=== PATIENT | female | born 2000 | race Caucasian/White ===

== ENCOUNTER 2021-11-24 20:44 | Inpatient (IN) ==
[2021-11-24] MEDS ORDERED: IOPAMIDOL 100 ML BOTTLE IV ONE (20:45)
[2021-11-24] MEDS ORDERED: 0.9 % SODIUM CHLORIDE 1,000 ML IV ONE (20:46)
[2021-11-24] MEDS ORDERED: SODIUM CHLORIDE IV ONE (20:57)
[2021-11-24] MEDS ORDERED: fentaNYL 100 MCG/2 ML VIAL IV ONE (21:02)
[2021-11-24] MEDS ORDERED: KETOROLAC 30 MG/ML VIAL IV ONE (21:02)
[2021-11-24] MEDS ORDERED: cefTRIAXone 2 GM in DEXTROSE 5% IN WATER 50 ML IV ONE (21:02)
[2021-11-24] MEDS ORDERED: AZITHROMYCIN 250 MG TABLET PO ONE (21:02)
[2021-11-24] MEDS ORDERED: ACETAMINOPHEN 325 MG TABLET PO ONE (21:02)
[2021-11-24] MEDS ORDERED: ONDANSETRON 4 MG/2 ML VIAL IV ONE (21:19)
--- NOTE | 2021-11-24 21:47 | Emergency Department Note ---
Female Urogenital HPI General Chief complaint: Flank Pain Stated complaint: flank pain Time Seen by Provider: 11/24/21 20:46 Source: patient Mode of arrival: ambulatory Limitations: no limitations History of Present Illness HPI Narrative: Narrative: Patient presents ED with complaints of bilateral flank pain left greater than right x2 days. Pain is rated 10/10. She reports that she had dysuria but that subsided yesterday. She also states that she had vaginal discharge which also subsided yesterday. She has had associated fever and nausea. She states that she did have a new sexual partner that is kind of sketchy. She reports that she does have IUD in. She denies vomiting, shortness of breath, hematuria, urinary frequency. Patient denies being . She denies any other alleviating or aggravating factors. Related Data Allergies Allergy/AdvReac Type Severity Reaction Status Date / Time No Known Drug Allergies Allergy Unverified 11/24/21 20:46 Review of Systems ROS ROS Narrative: Narrative: All systems ED: reviewed and negative except as stated. [facility] Narrative Patient History Narrative: Narrative: Medical/Surgical/Family History All Active Problems (Updated 11/25/21 @ 00:53 by Oliver Bueno DO) Alcoholic intoxication (Acute) Hypokalemia (Acute) Sepsis (Acute) UTI (urinary tract infection) (Acute) Pyelonephritis (Acute) Medical History Alcoholic intoxication Hypokalemia Social History Smoking Status: Never smoker Exam Narrative Narrative: Narrative: General Limitations: no limitations General appearance: Present alert Respiratory Respiratory: Present normal lung sounds bilaterally; Absent respiratory distress Cardiovascular Cardiovascular: Present regular rate and normal rhythm Adbominal Abdominal: Present soft, tenderness (Generalized), guarding and normal bowel sounds External: Present other (Nurse Juan was standby) Speculum: Present vaginal discharge and cervical discharge Bimanual: Present cervical motion tenderness Extremities Extremities: Present normal capillary refill Back Back: Present CVA tenderness (R) and CVA tenderness (L) Neurological Neurological: Present oriented X3 and normal gait Psychiatric Psychiatric: Present normal affect and normal mood Skin Skin: Present warm (WNL) and intact Course Course Course Narrative: Patient was evaluated for bilateral flank pain. Patient was tachycardic with tachypnea. Patient also had a fever. Labs were obtained show that patient had a elevated white cell count. UA was consistent with UTI. Patient deemed septic right ear with the aforementioned symptoms. She was given some IV fluids. Blood cultures were obtained and then patient was given IV antibiotics. Patient reports vaginal discharge so pelvic exam was performed showed copious amounts of discharge. GC and chlamydia sent off. Patient was given IV Rocephin and oral azithromycin to cover for gonorrhea and chlamydia. CT abdomen pelvis obtained with image reviewed myself consistent with left-sided pyelonephritis. Recommend the patient be admitted to hospitalist. Case was discussed hospitalist who has agreed to admit the patient. Plan was discussed with patient and she expressed verbal understanding and agreement. Reevaluation(s) Reevaluation #1: Patient remains hemodynamically stable. No new complaints at this time Time: 21:48 Consultations Consultation #1: Case discussed with hospitalist who has agreed to admit the patient. Time: 00:50 Vital Signs Vital signs: Vital Signs Temperature 100.6 F H 11/24/21 20:44 Pulse Rate 150 H 11/24/21 20:44 Respiratory Rate 16 11/24/21 20:44 Blood Pressure 106/65 11/24/21 20:44 Pulse Oximetry (%) 96 11/24/21 20:44 Temperature 100 F H 11/24/21 21:25 Pulse Rate 102 H 11/24/21 23:18 Respiratory Rate 26 H 11/24/21 23:18 Blood Pressure 104/64 11/24/21 23:01 Pulse Oximetry (%) 96 11/24/21 23:18 MDM MDM Narrative Medical decision making narrative: Narrative: Differential Diagnosis Differential Diagnosis: Pyelonephritis, UTI, GC Medical Records Medical records reviewed: Yes I reviewed the patient's medical records. Lab Data Lab results reviewed: Yes I reviewed the patient's lab results. Result diagrams: 11/24/21 20:55 Labs: Lab Results 11/24/21 11/24/21 11/24/21 Range/Units 20:55 20:59 21:05 WBC 22.4 H (4.5-11.0) K/mcL RBC 4.93 (3.59-5.38) M/mcL Hgb 14.5 (11.2-15.7) g/dL Hct 41.8 (34.1-44.9) % MCV 84.8 (80.0-100.0) fL MCH 29.4 (26.0-34.0) pg MCHC 34.7 (31.0-36.0) g/dL RDW 12.3 (11.5-14.5) % Plt Count 292 (140-440) K/mcL MPV 9.9 (7.4-10.4) fL Immature Gran % (Auto) 0.8 H (0.0-0.5) % Neut % (Auto) 83.2 H (38.0-78.0) % Lymph % (Auto) 5.3 L (15.5-49.0) % [place] % (Auto) 10.1 (1.0-12.0) % Eos % (Auto) 0.3 (0.0-7.0) % Baso % (Auto) 0.3 (0.0-2.0) % Lymph # (Auto) 1.19 L (1.50-4.80) K/mcL [place] # (Auto) 2.27 H (0.10-0.90) K/mcL Eos # (Auto) 0.07 (0.00-0.70) K/mcL Baso # (Auto) 0.06 (0.00-0.30) K/mcL Immature Gran # 0.18 H (0.00-0.05) K/mcl Absolute Neutrophils 18.85 H (1.80-8.00) K/mcL POC VBG pH 7.44 H 7.45 H (7.32-7.42) POC VBG pCO2 at Temp 29.8 L 28.8 L (41-51) POC VBG pO2 40 46 H (25-40) POC VBG HCO3 20.3 L 20.0 L (24-28) POC VBG Total CO2 21.0 L 21.0 L (25-29) POC Venous O2 Sat 78.0 H 85.0 H (40-70) POC VBG Base Excess -4.0 L -4.0 L (-2-2) VBG Lactic Acid 0.5 0.7 (0.5-2) Urine Color Urine Appearance (Clear) Urine pH (5.0-9.0) Ur Specific [place] (1.000-1.035) Urine Protein (Negative) mg/dL Urine Glucose (UA) (Negative) mg/dL Urine Ketones (Negative) mg/dL Urine Occult Blood (Negative) miriam/mcL Urine Nitrate (Negative) Urine Bilirubin (Negative) mg/dL Urine Urobilinogen mg/dL Ur Leukocyte Esterase (Negative) /uL Urine RBC (0-3) /hpf Urine WBC (0-4) /hpf Ur Squamous Epith Cells (0-4) /hpf Urine Bacteria (0) /hpf Urine Mucus (None) /hpf Ur Culture Indicated? 11/24/21 11/24/21 Range/Units 23:16 23:22 WBC (4.5-11.0) K/mcL RBC (3.59-5.38) M/mcL Hgb (11.2-15.7) g/dL Hct (34.1-44.9) % MCV (80.0-100.0) fL MCH (26.0-34.0) pg MCHC (31.0-36.0) g/dL RDW (11.5-14.5) % Plt Count (140-440) K/mcL MPV (7.4-10.4) fL Immature Gran % (Auto) (0.0-0.5) % Neut % (Auto) (38.0-78.0) % Lymph % (Auto) (15.5-49.0) % [place] % (Auto) (1.0-12.0) % Eos % (Auto) (0.0-7.0) % Baso % (Auto) (0.0-2.0) % Lymph # (Auto) (1.50-4.80) K/mcL [place] # (Auto) (0.10-0.90) K/mcL Eos # (Auto) (0.00-0.70) K/mcL Baso # (Auto) (0.00-0.30) K/mcL Immature Gran # (0.00-0.05) K/mcl Absolute Neutrophils (1.80-8.00) K/mcL POC VBG pH 7.40 (7.32-7.42) POC VBG pCO2 at Temp 31.6 L (41-51) POC VBG pO2 50 H (25-40) POC VBG HCO3 19.6 L (24-28) POC VBG Total CO2 21.0 L (25-29) POC Venous O2 Sat 86.0 H (40-70) POC VBG Base Excess -5.0 L (-2-2) VBG Lactic Acid 0.4 L (0.5-2) Urine Color Yellow Urine Appearance Cloudy A (Clear) Urine pH 6.0 (5.0-9.0) Ur Specific [place] 1.015 (1.000-1.035) Urine Protein 30 mg/dl A (Negative) mg/dL Urine Glucose (UA) Negative (Negative) mg/dL Urine Ketones 40 mg/dl A (Negative) mg/dL Urine Occult Blood Moderate A (Negative) miriam/mcL Urine Nitrate Positive A (Negative) Urine Bilirubin Negative (Negative) mg/dL Urine Urobilinogen Normal mg/dL Ur Leukocyte Esterase Large A (Negative) /uL Urine RBC 4 H (0-3) /hpf Urine WBC > 182 H (0-4) /hpf Ur Squamous Epith Cells 1 (0-4) /hpf Urine Bacteria None (0) /hpf Urine Mucus Few A (None) /hpf Ur Culture Indicated? yes ED POC Tests ED POC Tests: HCG POC Results Negative Radiology Data Radiology results reviewed: Yes I reviewed the patient's radiology results. Radiology results narrative: CT abdomen pelvis obtained with image reviewed myself consistent with left-sided pyelonephritis. EKG Data EKG #1: EKG attestation: Yes I reviewed and interpreted this EKG. EKG shows normal: sinus rhythm Rate: tachycardia (119) Rhythm: NSR [place]/QRS: normal Heart block present: None ST segment elevation in: None ST segment depression in: None QTc: normal QRS morphology: Present normal Interpretation: no acute changes Core Measures AMI Core Measures Followed: Yes Discharge Plan Patient/Caregiver Discharge Instructions Pt seen by HELP DESK SUPPORT/PA only: No Clinical Impression: Sepsis, UTI (urinary tract infection), Pyelonephritis Patient Disposition: Xfer As Inpt ([facility]) Condition: Good
[2021-11-24 22:08] LABS: Basophils # (Auto) 0.06 K/mcL (0.00-0.30); Basophils % (Auto) 0.3 % (0.0-2.0); Eosinophils # (Auto) 0.07 K/mcL (0.00-0.70); Eosinophils % (Auto) 0.3 % (0.0-7.0); Hematocrit 41.8 % (34.1-44.9); Hemoglobin 14.5 g/dL (11.2-15.7); Lymphocytes # (Auto) 1.19 K/mcL (1.50-4.80); Lymphocytes % (Auto) 5.3 % (15.5-49.0); Mean Cell Volume 84.8 fL (80.0-100.0); Mean Corpuscular HGB Conc 34.7 g/dL (31.0-36.0); Mean Platelet Volume 9.9 fL (7.4-10.4); Monocytes # (Auto) 2.27 K/mcL (0.10-0.90); Monocytes % (Auto) 10.1 % (1.0-12.0); Neutrophils % (Auto) 83.2 % (38.0-78.0); Platelet Count 292 K/mcL (140-440); RBC 4.93 M/mcL (3.59-5.38); Red Cell Distribution Width 12.3 % (11.5-14.5); WBC 22.4 K/mcL (4.5-11.0)
[2021-11-24 23:40] LABS: Appearance,Urine Cloudy (Clear); Bilirubin,Urine Negative (Negative); Color,Urine Yellow; Culture Indicated,Urine yes; Glucose,Urine (UA) Negative (Negative); Ketones,Urine 40 mg/dL mg/dL (Negative); Leukocyte Esterase,Urine Large /uL (Negative); Mucus,Urine FEW /hpf; Nitrate,Urine Positive (Negative); Specific Gravity,Urine 1.015 (1.000-1.035); Urine Blood Moderate ery/mcL (Negative); Urine RBC 4 /hpf (0-3); Urine Squamous Epithelial Cell 1 /hpf (0-4); Urine WBC > 182 /hpf (0-4); Urobilinogen,Urine Normal
[2021-11-25] MEDS ORDERED: NALOXONE HCL 0.4 MG/ML VIAL IV PRN (00:53)
[2021-11-25] MEDS ORDERED: ONDANSETRON 4 MG/2 ML VIAL IV PRN ×2 (00:53→07:44)
[2021-11-25] MEDS ORDERED: HYDROcodone/APAP 5/325MG TABLET PO PRN (00:53)
[2021-11-25] MEDS ORDERED: 0.9 % SODIUM CHLORIDE 1,000 ML IV SCH (01:00)
[2021-11-25] MEDS: ACETAMINOPHEN 325 MG TABLET PO PRN ×3 (05:31→19:16)
[2021-11-25 05:53] LABS: Basophils # (Auto) 0.05 K/mcL (0.00-0.30); Basophils % (Auto) 0.2 % (0.0-2.0); Eosinophils # (Auto) 0.05 K/mcL (0.00-0.70); Eosinophils % (Auto) 0.2 % (0.0-7.0); Hematocrit 43.7 % (34.1-44.9); Hemoglobin 14.6 g/dL (11.2-15.7); Lymphocytes # (Auto) 1.16 K/mcL (1.50-4.80); Lymphocytes % (Auto) 5.7 % (15.5-49.0); Mean Cell Volume 85.9 fL (80.0-100.0); Mean Corpuscular HGB Conc 33.4 g/dL (31.0-36.0); Mean Platelet Volume 9.8 fL (7.4-10.4); Monocytes # (Auto) 1.48 K/mcL (0.10-0.90); Monocytes % (Auto) 7.3 % (1.0-12.0); Neutrophils % (Auto) 85.6 % (38.0-78.0); Platelet Count 275 K/mcL (140-440); RBC 5.09 M/mcL (3.59-5.38); Red Cell Distribution Width 12.4 % (11.5-14.5); WBC 20.2 K/mcL (4.5-11.0)
[2021-11-25 06:23] LABS: ALT/SGPT 11 U/L (<40); AST/SGOT 14 U/L (<32); Albumin 3.5 gm/dL (3.2-5.2); Alkaline Phosphatase 73 U/L (39-117); Bilirubin,Direct 0.3 mg/dL (<0.3); Blood Urea Nitrogen 7 mg/dL (6-20); Calcium 8.7 mg/dL (8.6-10.4); Carbon Dioxide 19 mmol/L (22-30); Chloride 102 mmol/L (96-108); Globulin 3.5 gm/dL (2.2-3.7); Glomerular Filtration Rate 106; Glucose 105 mg/dL (70-105); Lactate Dehydrogenase 144 U/L (135-225); Phosphorous 1.8 mg/dL (2.5-4.5); Triglycerides 94 mg/dL (<125); Uric Acid 3.3 mg/dL (2.5-8.0)
[2021-11-25] MEDS ORDERED: morphine 4 MG/ML VIAL IV PRN (07:44)
--- NOTE | 2021-11-25 07:47 | Internal Med History&Physical ---
HPI History of Present Illness Patient information: Note initiated : 11/25/21 at 7:40 am Service Date, if different from initiated Date: [] Patient: Love Sage 21 y/o F admitted on 11/25/21 for flank pain. Chief Complaint: [dysuria, suprapubic pain, fever, chills] Chief complaint: dysuria, suprapubic pain, fever, chills History of present illness: Ms. Sage is a 21 year old F past medical history of urinary tract infection 2 years ago, presenting with 3-day history of dysuria, suprapubic pain, fever, chills. Patient is committing of 3-day history of dysuria, suprapubic pain, fever, and chills. She is also complained of nausea. She denies any chest pain shortness of breath or palpitations. She denies any back pain. When she presented to the ER last night, vital signs significant for fever, tachycardia, and tachypnea. Labs significant for leukocytosis with WBC 22.4, with left shift. Potassium 3.2. Lactic acid 0.4. Alcohol level 0.183. Patient stated that she only drink a beer last night. UA suggestive the presence of urinary tract infections. CT of the abdomen pelvis suggesting evidence of pyelonephritis without any kidney stones or obstructions. Patient was started with IV fluid boluses and Rocephin in the ER and admission request was called for sepsis with pyelonephritis. Constitutional Constitutional: Present chills and fever(s); Absent excessive sweating, fatigue or weakness EENT Eyes: Absent blurry vision, change in vision, loss of vision or other visual disturbances Ears: Absent decreased hearing or tinnitus Nose, mouth and throat: Absent abnormal hearing, dry mouth, headache(s), nasal congestion or sore throat Cardiovascular Cardiovascular: Absent chest pain, chest pain at rest, edema, irregular heart rhythm or palpatations Respiratory Respiratory: Absent cough, dyspnea or wheezing Gastrointestinal Gastrointestinal: Absent abdominal pain, constipation, diarrhea, nausea or vomiting Genitourinary Genitourinary: Present as per HPI and dysuria Musculoskeletal Musculoskeletal: Absent back pain, deformity, limited range of motion, muscle cramps, muscle weakness or numbness Integumentary Integumentary: Absent lesions, rash or wounds Neurological Neurological: Absent focal weakness, headache(s) or numbness Psychiatric Psychiatric: Absent anxiety, depression or hallucinations PFSH PFSH All Active Problems (Updated 11/25/21 @ 07:45 by Barber Mark MD) STD (female) (Acute) Alcoholic intoxication (Acute) Hypokalemia (Acute) Sepsis (Acute) UTI (urinary tract infection) (Acute) Pyelonephritis (Acute) Medical History Alcoholic intoxication Hypokalemia MEDS/ALLERGIES Home Medications and Allergies Allergies Allergy/AdvReac Type Severity Reaction Status Date / Time No Known Drug Allergies Allergy Unverified 11/24/21 20:46 EXAM Constitutional Vitals: Temp Pulse Resp BP Pulse Ox O2 Del Method 37.8 C H 111 H 22 105/58 98 11/25/21 05:31 11/25/21 04:00 11/25/21 04:00 11/25/21 04:00 11/25/21 04:00 11/25/21 01:23 General appearance: cooperative and no acute distress Head Head exam: Present atraumatic and normocephalic Eye Eye exam: Present EOMI and PERRL ENT ENT exam: Present mucous membranes moist, normal exam and normal external ear exam Neck Neck exam: Present normal inspection; Absent lymphadenopathy, tenderness or thyromegaly Respiratory Respiratory exam: Absent accessory muscle use, respiratory distress or wheezes Cardiovascular Cardiovascular exam: Present normal rate and rhythm; Absent JVD GI/Abdominal GI/Abdominal exam: Present normal bowel sounds and soft; Absent organomegaly or tenderness Extremities Exam Extremities exam: Present full ROM, normal capillary refill and normal inspection; Absent tenderness Back Exam Back exam: Present CVA tenderness (L) Neurological Exam Neurological exam: Present alert, CN II-XII intact and oriented X3; Absent motor sensory deficit Psychiatric Psychiatric exam: Present normal affect and normal mood; Absent anxious or depressed Skin Skin exam: Present dry and intact DATA Data Completed and Pending Labs: Labs from last 24 hours 11/25/21 11/25/21 11/24/21 05:24 05:24 23:22 WBC 20.2 H RBC 5.09 Hgb 14.6 Hct 43.7 MCV 85.9 MCH 28.7 MCHC 33.4 RDW 12.4 Plt Count 275 MPV 9.8 Immature Gran % (Auto) 1.0 H Neut % (Auto) 85.6 H Lymph % (Auto) 5.7 L [place] % (Auto) 7.3 Eos % (Auto) 0.2 Baso % (Auto) 0.2 Lymph # (Auto) 1.16 L [place] # (Auto) 1.48 H Eos # (Auto) 0.05 Baso # (Auto) 0.05 Immature Gran # 0.21 H Absolute Neutrophils 17.44 H POC VBG pH POC VBG pCO2 at Temp POC VBG pO2 POC VBG HCO3 POC VBG Total CO2 POC Venous O2 Sat POC VBG Base Excess VBG Lactic Acid Sodium 132 L Potassium 3.6 Chloride 102 Carbon Dioxide 19 L Anion Gap 11.0 BUN 7 Creatinine 0.8 GFR Calculation 106 Glucose 105 Uric Acid 3.3 Calcium 8.7 Phosphorus 1.8 L Magnesium 2.0 Total Bilirubin 1.0 Direct Bilirubin 0.3 H GGT 22 AST 14 ALT 11 Alkaline Phosphatase 73 Lactate Dehydrogenase 144 Total Protein 7.0 Albumin 3.5 Globulin 3.5 Albumin/Globulin Ratio 1.0 Triglycerides 94 Urine Color Yellow Urine Appearance Cloudy A Urine pH 6.0 Ur Specific [place] 1.015 Urine Protein 30 mg/dl A Urine Glucose (UA) Negative Urine Ketones 40 mg/dl A Urine Occult Blood Moderate A Urine Nitrate Positive A Urine Bilirubin Negative Urine Urobilinogen Normal Ur Leukocyte Esterase Large A Urine RBC 4 H Urine WBC > 182 H Ur Squamous Epith Cells 1 Urine Bacteria None Urine Mucus Few A Ur Culture Indicated? yes 11/24/21 11/24/21 11/24/21 23:16 21:05 20:59 WBC RBC Hgb Hct MCV MCH MCHC RDW Plt Count MPV Immature Gran % (Auto) Neut % (Auto) Lymph % (Auto) [place] % (Auto) Eos % (Auto) Baso % (Auto) Lymph # (Auto) [place] # (Auto) Eos # (Auto) Baso # (Auto) Immature Gran # Absolute Neutrophils POC VBG pH 7.40 7.45 H 7.44 H POC VBG pCO2 at Temp 31.6 L 28.8 L 29.8 L POC VBG pO2 50 H 46 H 40 POC VBG HCO3 19.6 L 20.0 L 20.3 L POC VBG Total CO2 21.0 L 21.0 L 21.0 L POC Venous O2 Sat 86.0 H 85.0 H 78.0 H POC VBG Base Excess -5.0 L -4.0 L -4.0 L VBG Lactic Acid 0.4 L 0.7 0.5 Sodium Potassium Chloride Carbon Dioxide Anion Gap BUN Creatinine GFR Calculation Glucose Uric Acid Calcium Phosphorus Magnesium Total Bilirubin Direct Bilirubin GGT AST ALT Alkaline Phosphatase Lactate Dehydrogenase Total Protein Albumin Globulin Albumin/Globulin Ratio Triglycerides Urine Color Urine Appearance Urine pH Ur Specific [place] Urine Protein Urine Glucose (UA) Urine Ketones Urine Occult Blood Urine Nitrate Urine Bilirubin Urine Urobilinogen Ur Leukocyte Esterase Urine RBC Urine WBC Ur Squamous Epith Cells Urine Bacteria Urine Mucus Ur Culture Indicated? 11/24/21 20:55 WBC 22.4 H RBC 4.93 Hgb 14.5 Hct 41.8 MCV 84.8 MCH 29.4 MCHC 34.7 RDW 12.3 Plt Count 292 MPV 9.9 Immature Gran % (Auto) 0.8 H Neut % (Auto) 83.2 H Lymph % (Auto) 5.3 L [place] % (Auto) 10.1 Eos % (Auto) 0.3 Baso % (Auto) 0.3 Lymph # (Auto) 1.19 L [place] # (Auto) 2.27 H Eos # (Auto) 0.07 Baso # (Auto) 0.06 Immature Gran # 0.18 H Absolute Neutrophils 18.85 H POC VBG pH POC VBG pCO2 at Temp POC VBG pO2 POC VBG HCO3 POC VBG Total CO2 POC Venous O2 Sat POC VBG Base Excess VBG Lactic Acid Sodium Potassium Chloride Carbon Dioxide Anion Gap BUN Creatinine GFR Calculation Glucose Uric Acid Calcium Phosphorus Magnesium Total Bilirubin Direct Bilirubin GGT AST ALT Alkaline Phosphatase Lactate Dehydrogenase Total Protein Albumin Globulin Albumin/Globulin Ratio Triglycerides Urine Color Urine Appearance Urine pH Ur Specific [place] Urine Protein Urine Glucose (UA) Urine Ketones Urine Occult Blood Urine Nitrate Urine Bilirubin Urine Urobilinogen Ur Leukocyte Esterase Urine RBC Urine WBC Ur Squamous Epith Cells Urine Bacteria Urine Mucus Ur Culture Indicated? A/P Assessment and plan (1) Sepsis: Status: Acute Qualifiers: Sepsis acute organ dysfunction status: without acute organ dysfunction Sepsis type: sepsis due to unspecified organism Qualified Code(s): A41.9 - Sepsis, unspecified organism (2) Pyelonephritis: Status: Acute (3) Alcoholic intoxication: Status: Acute Qualifiers: Complication of substance-induced condition: uncomplicated Qualified Code(s): F10.120 - Alcohol abuse with intoxication, uncomplicated (4) STD (female): Status: Acute Narrative A/P Narrative: Assessment and Plans: 1. Sepsis with pyelonephritis: DDx: STD Inpatient med surg s/p IV fluid bolus given in the ED, to be followed by NS@100cc/hr Serial lactic acid Procalcitonin cbc w/ auto diff in the morning Blood culture Urine culture Genital culture Rocephin Zithromax Tylenol Reading Morphine IV 2. Alcohol intoxication: No signs of active alcohol withdrawal, continue to watch for symptoms of withdrawal GI ppx: not currently indicated DVT ppx: Lovenox Code status: Full Prognosis: guarded Disposition: inpatient med surg Time Spent With Patient Time: Total time spent is greater than 50% in coordination of care (as documented) at patient's floor/unit and/or counseling patient: Total time spent with greater than 50% in coordination of care (as documented) at patient's floor/unit and/or counseling patient:: 50 - 70 minutes QUALITY VTE Deep Vein Thrombosis/Pulmonary Embolism Present on Admission: No
--- NOTE | 2021-11-25 08:49 | Cat Scan Report ---
CLINICAL INFORMATION: Bilateral flank pain COMPARISON: None. TECHNIQUE: Following enteric contrast, 80 cc of Isovue-370 were injected intravenously, and 60 seconds later, 0.625 mm helical slices were obtained from the mid heart through the subtrochanteric regions. Following reconstruction, 2.5 mm sagittal, coronal and axial reformatted images were processed and reviewed at bone, lung and soft tissue windows. Five minutes later, 0.625 mm helical slices were obtained from the mid heart through the kidneys and viewed at soft tissue windows.The exam was performed using radiation dose optimization techniques including, but not limited to, automated exposure control, adjustment of the mA and/or kV according to patient size and use of iterative reconstruction technique. FINDINGS: The lung bases are clear. No effusions. The visualized heart is grossly normal. Abdominal images show the gallbladder and bile ducts are unremarkable. The liver is diffusely inhomogeneous and mildly enlarged with a vertical dimension of 17 cm in midclavicular line. Associated periportal edema suggests inflammation or other hepatopathy. No focal hepatic lesions. The gallbladder and bile ducts are normal colon CBD is 5 mm. Both adrenal glands, spleen, pancreas and aorta, including aortic branches, are normal in size, configuration and attenuation without focal lesion. There is no free air. Modest simple free fluid noted in the deep true pelvis. Few mildly enlarged left retroperitoneal lymph nodes in the perinephric area compatible benign reactive adenopathy. The left kidney is inhomogeneous attenuation and minimally enlarged with a length of 11 cm. It demonstrates inhomogeneous attenuation with scattered vague wedge-shaped areas of lower attenuation in the renal cortex and medulla suggesting lobar nephronia. A 3 cm low-attenuation focus in the superior pole the left kidney likely represents developing abscess. Mild perinephric stranding noted. There is also mild thickening of the transitional epithelium in the left upper collecting system and ureter. The right kidney is normal size configuration and attenuation. Pelvic images show mild diffuse wall thickening of urinary bladder suggesting associated cystitis.. Uterus and both ovaries are normal in size, configuration and attenuation. The stomach, small bowel, inferior pericecal appendix and large bowel are grossly normal. Bone windows show no osseous abnormality IMPRESSION: 1. Left pyelonephritis with probable 3 cm developing abscess in the superior pole. 2. Diffuse wall thickening urinary bladder suggesting associated cystitis 3. Mild hepatomegaly with periportal edema suggesting inflammation or other primary hepatopathy. Please correlate with LFTs Interpreted and Authenticated by: Sid Vital 11/25/21
[2021-11-25] MEDS ORDERED: AZITHROMYCIN 500 MG in DEXTROSE 5% IN WATER 250 ML IV SCH (09:00)
[2021-11-25] MEDS: DOCUSATE SODIUM 100 MG CAPSULE PO SCH ×2 (09:02→20:49)
[2021-11-25] MEDS: 0.9 % SODIUM CHLORIDE 1,000 ML IV SCH ×3 (09:07→16:46)
[2021-11-25] MEDS: cefTRIAXone 2 GM in DEXTROSE 5% IN WATER 50 ML IV SCH (09:08)
[2021-11-25] MEDS: ENOXAPARIN 40 MG/0.4 ML SYRINGE SQ SCH (09:12)
[2021-11-25] MEDS: DOXYCYCLINE HYCLATE 100 MG TABLET.ORL PO SCH ×2 (11:23→20:46)
[2021-11-25] MEDS: 0.9 % SODIUM CHLORIDE 10 ML SYRINGE IV SCH ×2 (13:04→20:51)
--- NOTE | 2021-11-25 13:08 | EKG ---
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
[2021-11-25] MEDS: SENNOSIDES 1 TABLET PO SCH (20:50)
[2021-11-26] MEDS: 0.9 % SODIUM CHLORIDE 1,000 ML IV SCH ×3 (03:50→23:35)
[2021-11-26] MEDS: ACETAMINOPHEN 325 MG TABLET PO PRN ×2 (05:40→14:25)
[2021-11-26] MEDS: 0.9 % SODIUM CHLORIDE 10 ML SYRINGE IV SCH ×3 (06:08→21:04)
[2021-11-26 06:57] LABS: Basophils # (Auto) 0.03 K/mcL (0.00-0.30); Basophils % (Auto) 0.2 % (0.0-2.0); Eosinophils # (Auto) 0.02 K/mcL (0.00-0.70); Eosinophils % (Auto) 0.1 % (0.0-7.0); Hemoglobin 12.9 g/dL (11.2-15.7); Lymphocytes # (Auto) 1.78 K/mcL (1.50-4.80); Lymphocytes % (Auto) 11.1 % (15.5-49.0); Mean Cell Volume 85.4 fL (80.0-100.0); Mean Corpuscular HGB Conc 33.9 g/dL (31.0-36.0); Mean Platelet Volume 9.9 fL (7.4-10.4); Monocytes # (Auto) 1.51 K/mcL (0.10-0.90); Monocytes % (Auto) 9.5 % (1.0-12.0); Neutrophils % (Auto) 78.5 % (38.0-78.0); Platelet Count 267 K/mcL (140-440); RBC 4.45 M/mcL (3.59-5.38); Red Cell Distribution Width 12.3 % (11.5-14.5)
[2021-11-26 07:25] LABS: Blood Urea Nitrogen 4 mg/dL (6-20); Calcium 8.4 mg/dL (8.6-10.4); Carbon Dioxide 24 mmol/L (22-30); Chloride 106 mmol/L (96-108); Glomerular Filtration Rate 131; Glucose 100 mg/dL (70-105)
[2021-11-26] MEDS: ENOXAPARIN 40 MG/0.4 ML SYRINGE SQ SCH (07:43)
[2021-11-26] MEDS: DOCUSATE SODIUM 100 MG CAPSULE PO SCH ×2 (07:43→20:11)
[2021-11-26] MEDS: cefTRIAXone 2 GM in DEXTROSE 5% IN WATER 50 ML IV SCH (09:20)
[2021-11-26] MEDS: DOXYCYCLINE HYCLATE 100 MG TABLET.ORL PO SCH ×2 (09:20→21:05)
--- NOTE | 2021-11-26 11:14 | Internal Med Progress Note ---
SUBJECTIVE Subjective Patient information: Note initiated : 11/26/21 at 11:12 am Service Date, if different from initiated Date: [] Patient: Love Sage 21 y/o F admitted on 11/25/21 for flank pain. Chief Complaint: [Malaise] Principal diagnosis: Sepsis, pyelonephritis Interval history: I took over the care of this patient on hospital day #2. The patient's blood cultures have come back positive. She is feeling much better. She denies hematuria or dysuria. Constitutional Vitals: Vital Signs Temp Pulse Resp BP Pulse Ox O2 Del Method 97.6 F 92 H 16 103/60 98 11/26/21 07:58 11/26/21 08:00 11/26/21 08:00 11/26/21 07:58 11/26/21 08:00 11/26/21 08:00 Period Temp Pulse Resp BP Sys/[place] Pulse Ox O2 Del Method O2 Flow Rate Last 24 Hr 97.1 F-98.6 F 88-104 14-20 103-113/58-78 95-100 Room Air-Room Air Intake and Output 11/25/21 11/26/21 11/26/21 21:59 05:59 13:59 Intake Total 720 1000 50 Balance 720 1000 50 Weight 45.359 kg Intake & Output: Intake & Output 11/25/21 11/26/21 11/26/21 21:59 05:59 13:59 Intake Total 720 1000 50 Balance 720 1000 50 Weight 45.359 kg Intake: IV 1000 50 Sodium Chloride 0.9% 1,000 ml @ 1000 100 mls/hr IV .Q10H [place] Rx#: [id number] Rocephin 2 gm In Dextrose 5% in 50 Water 50 ml @ 100 mls/hr IV Q24H [place] Rx#:[id number] Oral 720 Other: Meal Dinner Percent of Meal Consumed 100% Feeding Ability Independent # Voids 1 1 1 Head Head exam: Present atraumatic and normal inspection Eye Eye exam: Present normal appearance ENT ENT exam: Present mucous membranes moist, normal exam and normal external ear exam Neck Neck exam: Present normal inspection Respiratory Respiratory exam: Present normal respiratory exam Cardiovascular Cardiovascular exam: Present normal rate and rhythm GI/Abdominal GI/Abdominal exam: Present normal bowel sounds Back Exam Back exam: Present normal inspection Neurological Exam Neurological exam: Present alert and oriented X3 Skin Skin exam: Present intact and warm OBJ DATA Labs CBC & Chem 7: 11/26/21 05:37 11/26/21 05:37 Labs: Abnormal Lab Results 11/26/21 11/26/21 11/25/21 05:37 05:37 05:24 WBC 16.0 H Immature Gran % (Auto) 0.6 H Neut % (Auto) 78.5 H Lymph % (Auto) 11.1 L Lymph # (Auto) [place] # (Auto) 1.51 H Immature Gran # 0.09 H Absolute Neutrophils 12.63 H POC VBG pH POC VBG pCO2 at Temp POC VBG pO2 POC VBG HCO3 POC VBG Total CO2 POC Venous O2 Sat POC VBG Base Excess VBG Lactic Acid Sodium Carbon Dioxide Anion Gap 6.0 L BUN 4 L Calcium 8.4 L Phosphorus Direct Bilirubin Procalcitonin 0.74 H Urine Appearance Urine Protein Urine Ketones Urine Occult Blood Urine Nitrate Ur Leukocyte Esterase Urine RBC Urine WBC Urine Mucus 11/25/21 11/25/21 11/24/21 05:24 05:24 23:22 WBC 20.2 H Immature Gran % (Auto) 1.0 H Neut % (Auto) 85.6 H Lymph % (Auto) 5.7 L Lymph # (Auto) 1.16 L [place] # (Auto) 1.48 H Immature Gran # 0.21 H Absolute Neutrophils 17.44 H POC VBG pH POC VBG pCO2 at Temp POC VBG pO2 POC VBG HCO3 POC VBG Total CO2 POC Venous O2 Sat POC VBG Base Excess VBG Lactic Acid Sodium 132 L Carbon Dioxide 19 L Anion Gap BUN Calcium Phosphorus 1.8 L Direct Bilirubin 0.3 H Procalcitonin Urine Appearance Cloudy A Urine Protein 30 mg/dl A Urine Ketones 40 mg/dl A Urine Occult Blood Moderate A Urine Nitrate Positive A Ur Leukocyte Esterase Large A Urine RBC 4 H Urine WBC > 182 H Urine Mucus Few A 11/24/21 11/24/21 11/24/21 23:16 21:05 20:59 WBC Immature Gran % (Auto) Neut % (Auto) Lymph % (Auto) Lymph # (Auto) [place] # (Auto) Immature Gran # Absolute Neutrophils POC VBG pH 7.45 H 7.44 H POC VBG pCO2 at Temp 31.6 L 28.8 L 29.8 L POC VBG pO2 50 H 46 H POC VBG HCO3 19.6 L 20.0 L 20.3 L POC VBG Total CO2 21.0 L 21.0 L 21.0 L POC Venous O2 Sat 86.0 H 85.0 H 78.0 H POC VBG Base Excess -5.0 L -4.0 L -4.0 L VBG Lactic Acid 0.4 L Sodium Carbon Dioxide Anion Gap BUN Calcium Phosphorus Direct Bilirubin Procalcitonin Urine Appearance Urine Protein Urine Ketones Urine Occult Blood Urine Nitrate Ur Leukocyte Esterase Urine RBC Urine WBC Urine Mucus 11/24/21 20:55 WBC 22.4 H Immature Gran % (Auto) 0.8 H Neut % (Auto) 83.2 H Lymph % (Auto) 5.3 L Lymph # (Auto) 1.19 L [place] # (Auto) 2.27 H Immature Gran # 0.18 H Absolute Neutrophils 18.85 H POC VBG pH POC VBG pCO2 at Temp POC VBG pO2 POC VBG HCO3 POC VBG Total CO2 POC Venous O2 Sat POC VBG Base Excess VBG Lactic Acid Sodium Carbon Dioxide Anion Gap BUN Calcium Phosphorus Direct Bilirubin Procalcitonin Urine Appearance Urine Protein Urine Ketones Urine Occult Blood Urine Nitrate Ur Leukocyte Esterase Urine RBC Urine WBC Urine Mucus Meds: Medications Acetaminophen (Acetaminophen 325 Mg Tablet) 650 mg PO Q6HP PRN; Protocol PRN Reason: Per Pain Protocol/Fever > 101 Last Admin: 11/26/21 05:40 Dose: 650 mg Hydrocodone Bitart/Acetaminophen (Hydrocodone/Apap 5/325mg Tablet) 1 tab PO Q4HP PRN; Protocol PRN Reason: Per Pain Protocol Last Admin: 11/25/21 14:04 Dose: 1 tab Docusate Sodium (Docusate Sodium 100 Mg Capsule) 100 mg PO BID [facility] Last Admin: 11/26/21 07:43 Dose: Not Given Doxycycline Hyclate (Doxycycline Hyclate 100 Mg Tablet.Orl) 100 mg PO BID [facility] Last Admin: 11/26/21 09:20 Dose: 100 mg Enoxaparin Sodium (Enoxaparin 40 Mg/0.4 Ml Syringe) 40 mg SQ DAILY [facility] Last Admin: 11/26/21 07:43 Dose: Not Given Sodium Chloride (Sodium Chloride 0.9%) 1,000 mls @ 100 mls/hr IV .Q10H [facility] Last Admin: 11/26/21 03:50 Dose: 100 mls/hr Ceftriaxone Sodium 2 gm/ (Dextrose) 50 mls @ 100 mls/hr IV Q24H [facility] Last Infusion: 11/26/21 09:52 Dose: Infused Morphine Sulfate (Morphine 4 Mg/Ml Vial) 4 mg IV Q4HP PRN; Protocol PRN Reason: Per Pain Protocol Naloxone HCl (Naloxone Hcl 0.4 Mg/Ml Vial) 0.1 mg IV Q2MIN PRN PRN Reason: Opiate Reversal Ondansetron HCl (Ondansetron 4 Mg/2 Ml Vial) 4 mg IV Q4HP PRN; Protocol PRN Reason: Nausea And Vomiting Ondansetron HCl (Ondansetron 4 Mg/2 Ml Vial) 4 mg IV Q6HP PRN PRN Reason: Nausea And Vomiting Senna (Sennosides 1 Tablet) 2 tab PO HS [facility] Last Admin: 11/25/21 20:50 Dose: Not Given Sodium Chloride (0.9 % Sodium Chloride 10 Ml Syringe) 10 ml IV Q8 [facility] Last Admin: 11/26/21 06:08 Dose: Not Given A/P Assessment and plan (1) Sepsis: Status: Acute Qualifiers: Sepsis acute organ dysfunction status: without acute organ dysfunction Sepsis type: sepsis due to unspecified organism Qualified Code(s): A41.9 - Sepsis, unspecified organism (2) Pyelonephritis: Status: Acute (3) Alcoholic intoxication: Status: Acute Qualifiers: Complication of substance-induced condition: uncomplicated Qualified Code(s): F10.120 - Alcohol abuse with intoxication, uncomplicated (4) STD (female): Status: Acute Narrative A/P Narrative: Assessment and Plans: 1. Sepsis with pyelonephritis: DDx: STD Inpatient med surg s/p IV fluid bolus given in the ED, to be followed by NS@100cc/hr Serial lactic acid Procalcitonin cbc w/ auto diff in the morning Blood culture-> positive for gram-negative bacillus. Repeat blood cultures have been obtained today Urine culture Genital culture-> STI panel pending, on doxy Rocephin Tylenol [place] Morphine IV 2. Alcohol intoxication: No signs of active alcohol withdrawal, continue to watch for symptoms of withdrawal GI ppx: not currently indicated DVT ppx: Lovenox Code status: Full Prognosis: good Disposition: inpatient med surg Time Spent With Patient Time: Total time spent is greater than 50% in coordination of care (as documented) at patient's floor/unit and/or counseling patient: Total time spent with greater than 50% in coordination of care (as documented) at patient's floor/unit and/or counseling patient:: 25 - 35 minutes QUALITY VTE Deep Vein Thrombosis/Pulmonary Embolism Present on Admission: No
[2021-11-26] MEDS: SENNOSIDES 1 TABLET PO SCH (20:11)
[2021-11-27] MEDS: 0.9 % SODIUM CHLORIDE 10 ML SYRINGE IV SCH (05:50)
[2021-11-27] MEDS ORDERED: amLODIPine 10 MG TABLET PO SCH (09:00)
[2021-11-27] MEDS: DOXYCYCLINE HYCLATE 100 MG TABLET.ORL PO SCH (09:03)
[2021-11-27] MEDS: ENOXAPARIN 40 MG/0.4 ML SYRINGE SQ SCH (09:04)
[2021-11-27] MEDS: DOCUSATE SODIUM 100 MG CAPSULE PO SCH (09:04)
[2021-11-27] MEDS: cefTRIAXone 2 GM in DEXTROSE 5% IN WATER 50 ML IV SCH (09:56)
[2021-11-27] MEDS ORDERED: CIPROFLOXACIN 500 MG TABLET PO ONE (10:03)
--- NOTE | 2021-11-27 11:30 | Discharge Summary ---
Discharge Provider Provider IMPORTANT FOLLOW-UP INFORMATION FOR PCP: Patient information: Note initiated : 11/27/21 at 11:29 am Service Date, if different from initiated Date: [] Patient: Love Sage 21 y/o F admitted on 11/25/21 for flank pain. Chief Complaint: [Fevers, dysuria] Date of admission: 11/25/21 01:23 Discharge date: 11/27/21 Consults: 11/25/21 00:46 Consult to Physician [CONS] Stat Comment: Consulting Provider: Barber Mark Reason For Exam: Physician to Consult Attending physician on discharge: [facility] COURSE Hospital Course Hospital course: The patient was found to have E. coli bacteremia in the setting of pyelonephritis. She was placed on IV ceftriaxone and her white blood cell count significantly improved. She was also started on doxycycline while her STI screen was pending. Her STI screen was negative. The patient's repeat blood cultures revealed no growth to date. She will be transition to ciprofloxacin 500 mg p.o. twice daily for total of 14 days. 1. Sepsis with pyelonephritis: DDx: STD Inpatient med surg s/p IV fluid bolus given in the ED, to be followed by NS@100cc/hr Serial lactic acid Procalcitonin cbc w/ auto diff in the morning Blood culture->positive for gram-negative bacillus. Repeat blood cultures have been obtained today Urine culture Genital culture->STI panel pending, on doxy Rocephin Tylenol [place] Morphine IV 2. Alcohol intoxication: No signs of active alcohol withdrawal, continue to watch for symptoms of withdrawal Discharge diagnosis: Sepsis, pyelonephritis, E.coli bacteremia Time Spent with Patient Time attestation: Total time spent providing and/or coordinating discharge services: Time spent: Greater than 30 minutes EXAM Constitutional Vitals: Temp Pulse Resp BP Pulse Ox O2 Del Method 97.8 F 88 17 125/80 96 11/27/21 07:44 11/27/21 07:44 11/27/21 07:44 11/27/21 07:44 11/27/21 07:44 11/27/21 07:44 General appearance: average body habitus Head Head exam: Present atraumatic, normal inspection and normocephalic Eye Eye exam: Present EOMI, normal appearance and PERRL; Absent conjunctival injection ENT ENT exam: Present normal exam; Absent mucous membranes dry Neck Neck exam: Present full ROM; Absent lymphadenopathy Respiratory Respiratory exam: Present normal respiratory exam and CTAB; Absent decreased breath sounds, respiratory distress or wheezes Cardiovascular Cardiovascular exam: Present normal rate and rhythm and RRR; Absent JVD GI/Abdominal GI/Abdominal exam: Present normal bowel sounds and soft; Absent diminished bowel sounds, distended, guarding, mass, rebound or tenderness Neurological Exam Neurological exam: Present alert, CN II-XII intact and oriented X3 Psychiatric Psychiatric exam: Present normal affect and normal mood Skin Skin exam: Present intact and warm; Absent erythema, pallor, petechiae or rash Discharge Data Data Completed and Pending Labs on day of discharge: Preliminary micro results at discharge 11/24/21 20:55 Blood Culture - Preliminary Blood Escherichia coli 11/26/21 07:40 Blood Culture - Preliminary Blood 11/26/21 07:33 Blood Culture - Preliminary Blood 11/24/21 20:05 Blood Culture - Preliminary Blood Discharge Plan Patient/Caregiver Discharge Instructions Activity: increase activity as tolerated Diet: Regular Diet Instructions: Urinary Tract Infection in Women (GEN), Kidney Infection (GEN), Sepsis (GEN) Prescriptions: New ciprofloxacin HCl 500 mg tablet 500 mg PO BID 11 Days Qty: 22 0RF Follow Up Plan Follow up with: Adenike Michael PA-C [Physician] - 12/05/21 9:30 am (This is a one time post hospital follow up appointment. ) Patient Disposition: Home, Self-Care Prognosis: Good Rehab Potential: Good I certify that the patient requires SNF services: No Overall status at discharge: patient is not back to baseline Discharge Orders: Discharge Order (Routine); Ordered 11/27/21 Ordered By: Angela MIR VTE Deep Vein Thrombosis/Pulmonary Embolism Present on Admission: No
[2021-11-27] MEDS: 0.9 % SODIUM CHLORIDE 1,000 ML IV SCH (12:00)
== END 2021-11-27 12:35 | disposition home or self-care (01) | DRG 872 ==
LOC: ED 20:44 → ICU 11-25 01:23
PROVIDERS: ADMIT Internal Medicine; ATTEND Student in an Organized Health Care Education/Training Program

== ENCOUNTER 2022-09-04 16:42 | Inpatient (IN) ==
[2022-09-04] MEDS ORDERED: IOPAMIDOL 100 ML BOTTLE IV ONE (16:43)
[2022-09-04] MEDS ORDERED: 0.9 % SODIUM CHLORIDE 1,000 ML IV ONE ×2 (16:50→17:23)
--- NOTE | 2022-09-04 16:55 | Emergency Department Note ---
Female Urogenital HPI General Chief complaint: Urogenital-Female Stated complaint: UTI Time Seen by Provider: 09/04/22 16:49 Source: patient Mode of arrival: ambulatory Limitations: no limitations History of Present Illness HPI Narrative: 21-year-old female presents the ER with 2 days of subjective fevers and bilateral flank pain. Patient was admitted last year 10/2021 for acute pyelonephritis and E. coli bacteremia. Culture data from that timeframe showed E. coli resistant to penicillins, otherwise sensitive to cephalosporins. She was treated with IV ceftriaxone and sent home with ciprofloxacin her symptoms resolved. Patient denies abnormal vaginal discharge or bleeding. Patient has an IUD so cannot tell me when her last menstrual period was. She denies . She does endorse dysuria, but no shandra hematuria. Her presenting heart rate is 125 bpm. She is febrile to 101 F. Blood pressure is stable at 106/64 mmHg. Related Data Allergies Allergy/AdvReac Type Severity Reaction Status Date / Time Penicillins Allergy Intermediate Swelling Verified 09/04/22 16:47 Review of Systems ROS ROS Narrative: Narrative: All systems ED: reviewed and negative except as stated. PFSH Narrative Patient History Narrative: Narrative: Medical/Surgical/Family History All Active Problems STD (female) (Acute) Alcoholic intoxication (Acute) Hypokalemia (Acute) Sepsis (Acute) UTI (urinary tract infection) (Acute) Pyelonephritis (Acute) Medical History Alcoholic intoxication Hypokalemia Exam Narrative Narrative: Gen: NAD. AO x 3 HEENT: PERRL, EOMI Heart: Tachycardia, RRR, No M/C/R Lungs: CTAB Abd: Mild suprapubic tenderness, no rebound tenderness, normal BS EXT: Warm and well perfused General Limitations: no limitations Course Course Course Narrative: 21 year old female presents with UTI meeting SIRS criteria. Reevaluation(s) Reevaluation #1: Blood cultures, labs, UA are pending Give 1 gram IV ceftriaxone Give 1g Ofirmev IVF's 30 mL/kg following sepsis protocol VBG with lactic acid 1.0 Vital Signs Vital signs: Vital Signs Temperature 98.0 F 09/04/22 16:45 Pulse Rate 125 H 09/04/22 16:45 Respiratory Rate 18 09/04/22 16:45 Blood Pressure 106/64 09/04/22 16:45 Pulse Oximetry (%) 98 09/04/22 16:45 Oxygen Delivery Method Room Air 09/04/22 16:45 Temperature 101.5 F H 09/04/22 17:26 Pulse Rate 116 H 09/04/22 17:26 Respiratory Rate 20 09/04/22 17:26 Blood Pressure 124/77 09/04/22 17:26 Pulse Oximetry (%) 100 09/04/22 17:26 Oxygen Delivery Method Room Air 09/04/22 17:26 MDM MDM Narrative Medical decision making narrative: Sepsis Source is likely urine. She does meet SIRS criteria. Blood cultures are pending. Continuous IVF's and ceftriaxone given. I have signed the patient out to ALIZA Das at change of shift. Lab Data Labs: Lab Results 09/04/22 Range/Units 17:17 POC VBG pH 7.40 (7.32-7.42) POC VBG pCO2 at Temp 37.1 L (41-51) POC VBG pO2 29 (25-40) POC VBG HCO3 23.0 L (24-28) POC VBG Total CO2 24.0 L (25-29) POC Venous O2 Sat 55.0 (40-70) POC VBG Base Excess -2.0 (-2-2) VBG Lactic Acid 1.0 (0.5-2) Discharge Plan Patient/Caregiver Discharge Instructions Pt seen by GAMEPLAY ENGINEER/PA only: Yes Patient Disposition: Still a Patient Follow up with: No,PCP [Primary Care Provider] -
[2022-09-04] MEDS ORDERED: cefTRIAXone 1 GM VIAL IV ONE (16:59)
[2022-09-04] MEDS ORDERED: ACETAMINOPHEN 1,000 MG/100 ML BAG IV ONE (17:22)
[2022-09-04] MEDS ORDERED: ONDANSETRON 4 MG/2 ML VIAL IV ONE (17:23)
--- NOTE | 2022-09-04 17:38 | Emergency Department Note ---
Female Urogenital HPI General Chief complaint: Urogenital-Female Stated complaint: UTI Time Seen by Provider: 09/04/22 16:49 Source: patient Mode of arrival: ambulatory Limitations: no limitations History of Present Illness HPI Narrative: Narrative: Patient is a 21-year-old female who I assumed care at 1715 this evening from Manju Andrade PA-C. Patient presented to the emergency department today with UTI symptoms. In October 2021 patient was diagnosed with left pyelonephritis with probable 3 cm developing abscess in the superior pole. Patient has been having subjective fevers and bilateral flank pain for the last 2 days along with dysuria. Patient denies any vaginal discharge, vaginal bleeding, dyspareunia, or . She has an IUD in place. She has not noticed any hematuria. On arrival patient's pulse is 125 and temperature 101.5. Blood pressure was 106/64. Related Data Allergies Allergy/AdvReac Type Severity Reaction Status Date / Time Penicillins Allergy Intermediate Swelling Verified 09/04/22 16:47 Review of Systems ROS ROS Narrative: Narrative: All systems ED: reviewed and negative except as stated. [facility] Narrative Patient History Narrative: Narrative: Medical/Surgical/Family History All Active Problems (Updated 09/04/22 @ 18:51 by Adair Jose DNP) STD (female) (Acute) Alcoholic intoxication (Acute) Hypokalemia (Acute) Sepsis (Acute) UTI (urinary tract infection) (Acute) Pyelonephritis (Acute) Medical History Alcoholic intoxication Hypokalemia Exam Narrative Narrative: Narrative: General Limitations: no limitations General appearance: Present alert and in no apparent distress Eye Eye: Present normal appearance; Absent scleral icterus ENT ENT: Present mucous membranes moist Neck Neck: Absent lymphadenopathy Chest Chest: Present symmetric chest wall rise Respiratory Respiratory: Present normal lung sounds bilaterally; Absent respiratory distress, rales/crackles, wheezes or accessory muscle use Cardiovascular Cardiovascular: Present normal rhythm and tachycardia; Absent systolic murmur or diastolic murmur Adbominal Abdominal: Present soft and tenderness (Mild suprapubic tenderness with pal pation.); Absent distention, rebound, rigidity or mass Extremities Extremities: Present normal inspection and normal capillary refill; Absent pedal edema, pretibial edema or cyanosis Back Back: Present normal inspection and CVA tenderness (L); Absent CVA tenderness (R) or spinous process tenderness Neurological Neurological: Present alert and oriented X3 Psychiatric Psychiatric: Present normal affect and normal mood Skin Skin: Present warm (WNL), dry and normal color Course Vital Signs Vital signs: Vital Signs Temperature 98.0 F 09/04/22 16:45 Pulse Rate 125 H 09/04/22 16:45 Respiratory Rate 18 09/04/22 16:45 Blood Pressure 106/64 09/04/22 16:45 Pulse Oximetry (%) 98 09/04/22 16:45 Oxygen Delivery Method Room Air 09/04/22 16:45 Temperature 98.4 F 09/04/22 19:35 Pulse Rate 97 H 09/04/22 20:15 Respiratory Rate 18 09/04/22 20:15 Blood Pressure 108/66 09/04/22 20:15 Pulse Oximetry (%) 100 09/04/22 20:15 Oxygen Delivery Method Room Air 09/04/22 20:12 MDM MDM Narrative Medical decision making narrative: Narrative: Current work-up was initiated by my colleague (Manju Andrade PA-C) and patient received 30 mL/kg normal saline intravenous for hydration, blood cultures were obtained, lactic acid, urinalysis, and urine hCG. Patient's lactic acid today is normal at 1.0. She was ordered 1 g of IV Rocephin and the 1000 g of IV acetaminophen with 4 mg of ondansetron. Ordered CBC, [id number] Chem-8 panel today. Patient's urine dipstick shows positive nitrites and leukocytes. Urine hCG was negative. Clinical impression of urinary tract infection with potential sepsis and pyelonephritis. Given patient's history of pyelonephritis with abscess proceeded with abdomen pelvis CT scan with contrast. Patient CT abdomen pelvis today shows recurrent left pyelonephritis. 3 x 1.4 cm low-attenuation lesion in the superior left kidney is slightly smaller and better defined than previous years study and could represent a chronic or recurrent abscess. Given that the findings on the CT scan show the lesion at the same location and similar to the same size this is more likely to be a chronic finding rather than recurrent of abscess. She does have CVA tenderness with urinary tract infection most compatible with pyelonephritis. CT findings show mild ileus with moderate colonic stool. There is mild wall thickening of the urinary bladder compatible with cystitis. Patient's white count today is elevated at 13.7. Her renal function is normal today with normal electrolytes. Given the patient's findings today I feel would be best interest of the patient to be admitted at [facility] for the pyelonephritis and sepsis. I was able to speak with Dr. Grimaldo who is on today for hospitalist at [facility]. He asked for a procalcitonin to be ordered on this patient. He plans on coming down to the emergency department seeing the patient and accepted patient for hospital admission at [facility] today. At 1920 the patient had received only 1 L of NS at this time. Her pulse is still showing tachycardia. Advised RN to administer the second liter of NS today. Sepsis Sepsis Identified: Yes Comments: Pt admitted Lab Data Lab results reviewed: Yes I reviewed the patient's lab results. 09/04/22 17:38 Labs: Lab Results 09/04/22 09/04/22 09/04/22 Range/Units 17:00 17:00 17:07 WBC (4.5-11.0) K/mcL RBC (3.59-5.38) M/mcL Hgb (11.2-15.7) g/dL Hct (34.1-44.9) % POC Hct (36-48) MCV (80.0-100.0) fL MCH (26.0-34.0) pg MCHC (31.0-36.0) g/dL RDW (11.5-14.5) % Plt Count (140-440) K/mcL MPV (8.8-12.5) fL Immature Gran % (Auto) (0.0-0.5) % Neut % (Auto) (38.0-78.0) % Lymph % (Auto) (15.5-49.0) % [place] % (Auto) (1.0-12.0) % Eos % (Auto) (0.0-7.0) % Baso % (Auto) (0.0-2.0) % Lymph # (Auto) (1.50-4.80) K/mcL [place] # (Auto) (0.10-0.90) K/mcL Eos # (Auto) (0.00-0.70) K/mcL Baso # (Auto) (0.00-0.30) K/mcL Immature Gran # (0.00-0.05) K/mcl Absolute Neutrophils (1.80-8.00) K/mcL POC VBG pH (7.32-7.42) POC VBG pCO2 at Temp (41-51) POC VBG pO2 (25-40) POC VBG HCO3 (24-28) POC VBG Total CO2 (25-29) POC Venous O2 Sat (40-70) POC VBG Base Excess (-2-2) VBG Lactic Acid (0.5-2) POC Sodium (133-145) POC Potassium (3.3-5.1) POC Chloride (96-108) POC Total CO2 (22-30) POC BUN (6-20) POC Creatinine (0.6-1.2) POC Glucose (70-105) POC WB Ioniz Calcium (1.16-1.32) Procalcitonin 0.08 (<0.10) ng/mL Urine Color Yellow Urine Appearance Cloudy A (Clear) Urine pH 6.0 (5.0-9.0) Ur Specific [place] 1.011 (1.000-1.035) Urine Protein 30 A (Negative) mg/dL Urine Glucose (UA) Negative (Negative) mg/dL Urine Ketones 20 A (Negative) mg/dL Urine Occult Blood 0.03 (Negative) mg/dL Urine Nitrate Pos A (Negative) Urine Bilirubin Negative (Negative) mg/dL Urine Urobilinogen Negative mg/dL Ur Leukocyte Esterase 500 A (Negative) /uL Urine RBC 4 H (0-3) /hpf Urine WBC > 182 H (0-4) /hpf Ur Squamous Epith Cells 2 (0-4) /hpf Urine Bacteria Few A (0) /hpf Urine Mucus Few A (None) /hpf Ur Culture Indicated? yes Urine HCG, Qual Negative (Negative) 09/04/22 09/04/22 09/04/22 Range/Units 17:17 17:38 17:56 WBC 13.7 H (4.5-11.0) K/mcL RBC 4.90 (3.59-5.38) M/mcL Hgb 14.1 (11.2-15.7) g/dL Hct 41.4 (34.1-44.9) % POC Hct 37.0 (36-48) MCV 84.5 (80.0-100.0) fL MCH 28.8 (26.0-34.0) pg MCHC 34.1 (31.0-36.0) g/dL RDW 12.3 (11.5-14.5) % Plt Count 260 (140-440) K/mcL MPV 10.2 (8.8-12.5) fL Immature Gran % (Auto) 0.4 (0.0-0.5) % Neut % (Auto) 79.8 H (38.0-78.0) % Lymph % (Auto) 9.4 L (15.5-49.0) % Wayne % (Auto) 10.1 (1.0-12.0) % Eos % (Auto) 0 (0.0-7.0) % Baso % (Auto) 0.3 (0.0-2.0) % Lymph # (Auto) 1.28 L (1.50-4.80) K/mcL [place] # (Auto) 1.38 H (0.10-0.90) K/mcL Eos # (Auto) 0 (0.00-0.70) K/mcL Baso # (Auto) 0.04 (0.00-0.30) K/mcL Immature Gran # 0.05 (0.00-0.05) K/mcl Absolute Neutrophils 10.90 H (1.80-8.00) K/mcL POC VBG pH 7.40 (7.32-7.42) POC VBG pCO2 at Temp 37.1 L (41-51) POC VBG pO2 29 (25-40) POC VBG HCO3 23.0 L (24-28) POC VBG Total CO2 24.0 L (25-29) POC Venous O2 Sat 55.0 (40-70) POC VBG Base Excess -2.0 (-2-2) VBG Lactic Acid 1.0 (0.5-2) POC Sodium 136 (133-145) POC Potassium 3.5 (3.3-5.1) POC Chloride 103 (96-108) POC Total CO2 21.0 L (22-30) POC BUN 6 (6-20) POC Creatinine 0.5 L (0.6-1.2) POC Glucose 93 (70-105) POC WB Ioniz Calcium 1.10 L (1.16-1.32) Procalcitonin (<0.10) ng/mL Urine Color Urine Appearance (Clear) Urine pH (5.0-9.0) Ur Specific [place] (1.000-1.035) Urine Protein (Negative) mg/dL Urine Glucose (UA) (Negative) mg/dL Urine Ketones (Negative) mg/dL Urine Occult Blood (Negative) mg/dL Urine Nitrate (Negative) Urine Bilirubin (Negative) mg/dL Urine Urobilinogen mg/dL Ur Leukocyte Esterase (Negative) /uL Urine RBC (0-3) /hpf Urine WBC (0-4) /hpf Ur Squamous Epith Cells (0-4) /hpf Urine Bacteria (0) /hpf Urine Mucus (None) /hpf Ur Culture Indicated? Urine HCG, Qual (Negative) Radiology Data Radiology results reviewed: Yes I reviewed the patient's radiology results. Radiology results narrative: Ordering Physician:Adair Jose DNP Date of Service:09/04/22 Procedure(s):CT abdomen pelvis w con CLINICAL INFORMATION: Left flank pain COMPARISON: 11/24/[address] TECHNIQUE: Following enteric contrast, 80 cc of Isovue-370 were injected intravenously, and 60 seconds later, 0.625 mm helical slices were obtained from the mid heart through the subtrochanteric regions. Following reconstruction, 2.5 mm sagittal, coronal and axial reformatted images were processed and reviewed at bone, lung and soft tissue windows. Five minutes later, 0.625 mm helical slices were obtained from the mid heart through the kidneys and viewed at soft tissue windows.The exam was performed using radiation dose optimization techniques including, but not limited to, automated exposure control, adjustment of the mA and/or kV according to patient size and use of iterative reconstruction technique. FINDINGS: The lung bases are clear. No effusions. The visualized heart is grossly normal. Abdominal images show mild fatty change within the liver but no focal hepatic lesions. The gallbladder bile ducts are normal in CBD is 5 mm. Both adrenal glands, spleen, pancreas and aorta, including aortic branches, are normal in size, configuration and attenuation without focal lesion. There is no free air, free fluid or adenopathy. Both kidneys are normal and symmetric in size, position, configuration: Each kidney is 10 cm in length. A 3 x 1.4 cm irregular low attenuation region in the lateral cortical medullary region of the superior left kidney again noted.. This is slightly smaller and better defined than on the exam nearly one year prior. There is also vague patchy inhomogeneous attenuation within the left renal parenchyma that is less striking on previous years study but still compatible with pyelonephritis. Mild thickening of the transitional epithelium left upper collecting system and proximal ureter is supportive of pyelonephritis. Right kidney is entirely unremarkable. Pelvic images show moderate diffuse wall thickening the urinary bladder suggesting cystitis. The uterus is anteflexed and normal in size: 8 x 4 cm. IUD is probably patient in the endometrial cavity. Both ovaries are normal in size a 2.2 cm simple cyst present in the right ovary and a 1.3 cm simple cyst seen in the left ovary. Stomach and small large bowel show mild symmetric dilatation compatible with mild ileus. There is moderate colonic stool. Bone windows show no osseous abnormalities. IMPRESSION: 1. Recurrent left pyelonephritis. 3 x 1.4 cm low-attenuation lesion in the superior left kidney is slightly smaller and better defined than previous years study. This could represent a chronic or recurrent abscess. 2. Mild fatty change within the liver. Please correlate with LFTs 3. Mild ileus with moderate colonic stool 4. Mild wall thickening of the urinary bladder compatible with cystitis Interpreted and Authenticated by: Sid Vital 09/04/22 Discharge Plan Patient/Caregiver Discharge Instructions Pt seen by HAM CURER/PA only: No Clinical Impression: Pyelonephritis, Sepsis Patient Disposition: Xfer As Outpt/Obs ([facility]) Follow up with: No,PCP [Primary Care Provider] -
[2022-09-04 18:03] LABS: POC Calcium, Ionized 1.1 (1.16-1.32); POC Creatinine 0.5 (0.6-1.2); POC Potassium 3.5 (3.3-5.1)
[2022-09-04 18:06] LABS: Basophils # (Auto) 0.04 K/mcL (0.00-0.30); Basophils % (Auto) 0.3 % (0.0-2.0); Eosinophils # (Auto) 0 K/mcL (0.00-0.70); Eosinophils % (Auto) 0 % (0.0-7.0); Hematocrit 41.4 % (34.1-44.9); Hemoglobin 14.1 g/dL (11.2-15.7); Lymphocytes # (Auto) 1.28 K/mcL (1.50-4.80); Lymphocytes % (Auto) 9.4 % (15.5-49.0); Mean Cell Volume 84.5 fL (80.0-100.0); Mean Corpuscular HGB Conc 34.1 g/dL (31.0-36.0); Mean Platelet Volume 10.2 fL (8.8-12.5); Monocytes # (Auto) 1.38 K/mcL (0.10-0.90); Monocytes % (Auto) 10.1 % (1.0-12.0); Neutrophils % (Auto) 79.8 % (38.0-78.0); Platelet Count 260 K/mcL (140-440); Red Cell Distribution Width 12.3 % (11.5-14.5); WBC 13.7 K/mcL (4.5-11.0)
[2022-09-04 18:07] LABS: Appearance,Urine CLOUDY (Clear); Bacteria,Urine FEW /hpf (0); Bilirubin,Urine Negative (Negative); Color,Urine YELLOW; Culture Indicated,Urine yes; Glucose,Urine (UA) Negative (Negative); Ketones,Urine 20 mg/dL (Negative); Leukocyte Esterase,Urine 500 /uL (Negative); Mucus,Urine FEW /hpf; Nitrate,Urine POS (Negative); Protein,Urine 30 mg/dL (Negative); Specific Gravity,Urine 1.011 (1.000-1.035); Urine Blood 0.03 mg/dL (Negative); Urine RBC 4 /hpf (0-3); Urine Squamous Epithelial Cell 2 /hpf (0-4); Urine WBC > 182 /hpf (0-4); Urobilinogen,Urine Negative
--- NOTE | 2022-09-04 18:46 | Cat Scan Report ---
CLINICAL INFORMATION: Left flank pain COMPARISON: 11/24/[address] TECHNIQUE: Following enteric contrast, 80 cc of Isovue-370 were injected intravenously, and 60 seconds later, 0.625 mm helical slices were obtained from the mid heart through the subtrochanteric regions. Following reconstruction, 2.5 mm sagittal, coronal and axial reformatted images were processed and reviewed at bone, lung and soft tissue windows. Five minutes later, 0.625 mm helical slices were obtained from the mid heart through the kidneys and viewed at soft tissue windows.The exam was performed using radiation dose optimization techniques including, but not limited to, automated exposure control, adjustment of the mA and/or kV according to patient size and use of iterative reconstruction technique. FINDINGS: The lung bases are clear. No effusions. The visualized heart is grossly normal. Abdominal images show mild fatty change within the liver but no focal hepatic lesions. The gallbladder bile ducts are normal in CBD is 5 mm. Both adrenal glands, spleen, pancreas and aorta, including aortic branches, are normal in size, configuration and attenuation without focal lesion. There is no free air, free fluid or adenopathy. Both kidneys are normal and symmetric in size, position, configuration: Each kidney is 10 cm in length. A 3 x 1.4 cm irregular low attenuation region in the lateral cortical medullary region of the superior left kidney again noted.. This is slightly smaller and better defined than on the exam nearly one year prior. There is also vague patchy inhomogeneous attenuation within the left renal parenchyma that is less striking on previous years study but still compatible with pyelonephritis. Mild thickening of the transitional epithelium left upper collecting system and proximal ureter is supportive of pyelonephritis. Right kidney is entirely unremarkable. Pelvic images show moderate diffuse wall thickening the urinary bladder suggesting cystitis. The uterus is anteflexed and normal in size: 8 x 4 cm. IUD is probably patient in the endometrial cavity. Both ovaries are normal in size a 2.2 cm simple cyst present in the right ovary and a 1.3 cm simple cyst seen in the left ovary. Stomach and small large bowel show mild symmetric dilatation compatible with mild ileus. There is moderate colonic stool. Bone windows show no osseous abnormalities. IMPRESSION: 1. Recurrent left pyelonephritis. 3 x 1.4 cm low-attenuation lesion in the superior left kidney is slightly smaller and better defined than previous years study. This could represent a chronic or recurrent abscess. 2. Mild fatty change within the liver. Please correlate with LFTs 3. Mild ileus with moderate colonic stool 4. Mild wall thickening of the urinary bladder compatible with cystitis Interpreted and Authenticated by: Sid Vital 09/04/22
--- NOTE | 2022-09-04 19:20 | Internal Med History&Physical ---
HPI History of Present Illness Patient information: Note initiated : 09/04/22 at 7:12 pm Service Date, if different from initiated Date: [] Patient: Love Sage 21 y/o F admitted on for UTI. Chief Complaint: [] History of present illness: Ms. Sage is a 21 year old F past medical history of pyelonephritis, urinary tract infections presented with 2-3 days history of dysuria, subjective fever, chills, suprapubic and left flank pain. Patient did not eat anything today since she was feeling tired and sleepy. Patient has IUD in place. Patient reported no hematuria. In October 2021 patient was diagnosed with left pyelonephritis with probable 3 cm developing abscess in the superior pole. CT scan abdomen showed recurrent left pyelonephritis 3 x 1.4 cm lesion in the superior left kidney could represent chronic or recurrent abscess, mild urinary bladder wall thickening compatible with cystitis. Patient was in sepsis with tachycardia of 125, fever 101.5, blood pressure 106/64 leukocytosis of 13,000. UA was consistent with UTI. Renal function is normal with normal electrolytes. Patient started with IV boluses and ceftriaxone in ER and admission was requested. Review of system Constitutional Constitutional: Present chills and fever(s); Absent excessive sweating, fatigue or weakness EENT Eyes: Absent blurry vision, change in vision, loss of vision or other visual disturbances Ears: Absent decreased hearing or tinnitus Nose, mouth and throat: Absent abnormal hearing, dry mouth, headache(s), nasal congestion or sore throat Cardiovascular Cardiovascular: Absent chest pain, chest pain at rest, edema, irregular heart rhythm or palpatations Respiratory Respiratory: Absent cough, dyspnea or wheezing Gastrointestinal Gastrointestinal: Absent abdominal pain, constipation, diarrhea, nausea or vomiting Genitourinary Genitourinary: Present as per HPI and dysuria, left flank pain, suprapubic pain Musculoskeletal Musculoskeletal: Absent back pain, deformity, limited range of motion, muscle cramps, muscle weakness or numbness Integumentary Integumentary: Absent lesions, rash or wounds Neurological Neurological: Absent focal weakness, headache(s) or numbness Psychiatric Physical examination General appearance: cooperative and no acute distress Head Head exam: Present atraumatic and normocephalic Eye Eye exam: Present EOMI and PERRL ENT ENT exam: Present mucous membranes moist, normal exam and normal external ear exam Neck Neck exam: Present normal inspection; Absent lymphadenopathy, tenderness or thyromegaly Respiratory Respiratory exam: Absent accessory muscle use, respiratory distress or wheezes Cardiovascular Cardiovascular exam: Present S1 and S2, sinus tachycardia, no murmurs heard GI/Abdominal GI/Abdominal exam: Present normal bowel sounds and soft; Absent organomegaly or tenderness Extremities Exam Extremities exam: Present full ROM, normal capillary refill and normal inspection; Absent tenderness Back Exam Back exam: Present CVA tenderness (L) Neurological Exam Neurological exam: Present alert, CN II-XII intact and oriented X3; Absent motor sensory deficit Psychiatric Psychiatric exam: Present normal affect and normal mood; Absent anxious or depressed Skin Skin exam: Present dry and intact Assessment and plan Sepsis Patient presented with tachycardia, fever, leukocytosis and pyelonephritis. Initially hypotensive responded to 2 L boluses. Acute pyelonephritis Patient with history of left pyelonephritis with probable 3 cm abscess in the left superior pole. CT scan this time showed recurrent left pyelonephritis 3 x 1.4 cm lesion in the superior left kidney could represent chronic or recurrent abscess, mild urinary bladder wall thickening compatible with cystitis. Patient with history of E. coli UTI and bacteremia. We will start her on IV ceftriaxone. Follow urine and blood cultures. Pain control with Tylenol GI ppx: not currently indicated DVT ppx: SCDs Code status: Full Prognosis: guarded Disposition: inpatient med surg Total time spent with greater than 50% in coordination of care (as documented) at patient's floor/unit and/or counseling patient:: 50 - 70 minutes PFSH PFSH All Active Problems (Updated 09/04/22 @ 18:51 by Adair Jose DNP) STD (female) (Acute) Alcoholic intoxication (Acute) Hypokalemia (Acute) Sepsis (Acute) UTI (urinary tract infection) (Acute) Pyelonephritis (Acute) Medical History Alcoholic intoxication Hypokalemia MEDS/ALLERGIES Home Medications and Allergies Allergies Allergy/AdvReac Type Severity Reaction Status Date / Time Penicillins Allergy Intermediate Swelling Verified 09/04/22 16:47 EXAM Constitutional Vitals: Temp Pulse Resp BP Pulse Ox O2 Del Method 101.5 F H 116 H 20 108/62 100 Room Air 09/04/22 18:04 09/04/22 18:06 09/04/22 17:26 09/04/22 18:06 09/04/22 18:06 09/04/22 17:26 DATA Data Completed and Pending Labs: Labs from last 24 hours 09/04/22 09/04/22 09/04/22 17:56 17:38 17:17 WBC 13.7 H RBC 4.90 Hgb 14.1 Hct 41.4 POC Hct 37.0 MCV 84.5 MCH 28.8 MCHC 34.1 RDW 12.3 Plt Count 260 MPV 10.2 Immature Gran % (Auto) 0.4 Neut % (Auto) 79.8 H Lymph % (Auto) 9.4 L [place] % (Auto) 10.1 Eos % (Auto) 0 Baso % (Auto) 0.3 Lymph # (Auto) 1.28 L [place] # (Auto) 1.38 H Eos # (Auto) 0 Baso # (Auto) 0.04 Immature Gran # 0.05 Absolute Neutrophils 10.90 H POC VBG pH 7.40 POC VBG pCO2 at Temp 37.1 L POC VBG pO2 29 POC VBG HCO3 23.0 L POC VBG Total CO2 24.0 L POC Venous O2 Sat 55.0 POC VBG Base Excess -2.0 VBG Lactic Acid 1.0 POC Sodium 136 POC Potassium 3.5 POC Chloride 103 POC Total CO2 21.0 L POC BUN 6 POC Creatinine 0.5 L POC Glucose 93 POC WB Ioniz Calcium 1.10 L Urine Color Urine Appearance Urine pH Ur Specific [place] Urine Protein Urine Glucose (UA) Urine Ketones Urine Occult Blood Urine Nitrate Urine Bilirubin Urine Urobilinogen Ur Leukocyte Esterase Urine RBC Urine WBC Ur Squamous Epith Cells Urine Bacteria Urine Mucus Ur Culture Indicated? Urine HCG, Qual 09/04/22 09/04/22 17:00 17:00 WBC RBC Hgb Hct POC Hct MCV MCH MCHC RDW Plt Count MPV Immature Gran % (Auto) Neut % (Auto) Lymph % (Auto) [place] % (Auto) Eos % (Auto) Baso % (Auto) Lymph # (Auto) [place] # (Auto) Eos # (Auto) Baso # (Auto) Immature Gran # Absolute Neutrophils POC VBG pH POC VBG pCO2 at Temp POC VBG pO2 POC VBG HCO3 POC VBG Total CO2 POC Venous O2 Sat POC VBG Base Excess VBG Lactic Acid POC Sodium POC Potassium POC Chloride POC Total CO2 POC BUN POC Creatinine POC Glucose POC WB Ioniz Calcium Urine Color Yellow Urine Appearance Cloudy A Urine pH 6.0 Ur Specific [place] 1.011 Urine Protein 30 A Urine Glucose (UA) Negative Urine Ketones 20 A Urine Occult Blood 0.03 Urine Nitrate Pos A Urine Bilirubin Negative Urine Urobilinogen Negative Ur Leukocyte Esterase 500 A Urine RBC 4 H Urine WBC > 182 H Ur Squamous Epith Cells 2 Urine Bacteria Few A Urine Mucus Few A Ur Culture Indicated? yes Urine HCG, Qual Negative A/P Time Spent With Patient Time: Total time spent is greater than 50% in coordination of care (as documented) at patient's floor/unit and/or counseling patient:
[2022-09-04] MEDS ORDERED: ACETAMINOPHEN 325 MG TABLET PO PRN (20:59)
[2022-09-04] MEDS ORDERED: cefTRIAXone 1 GM in DEXTROSE 5% IN WATER 50 ML IV SCH (20:59)
[2022-09-04] MEDS ORDERED: ONDANSETRON 4 MG/2 ML VIAL IV PRN (20:59)
[2022-09-05] MEDS: SENNOSIDES 1 TABLET PO SCH ×2 (00:31→20:24)
[2022-09-05] MEDS: DOCUSATE SODIUM 100 MG CAPSULE PO SCH ×3 (00:31→20:24)
[2022-09-05] MEDS: 0.9 % SODIUM CHLORIDE 10 ML SYRINGE IV SCH ×4 (00:32→20:25)
[2022-09-05 06:03] LABS: Basophils # (Auto) 0.02 K/mcL (0.00-0.30); Basophils % (Auto) 0.2 % (0.0-2.0); Eosinophils # (Auto) 0 K/mcL (0.00-0.70); Eosinophils % (Auto) 0 % (0.0-7.0); Hematocrit 37.1 % (34.1-44.9); Hemoglobin 12.7 g/dL (11.2-15.7); Lymphocytes % (Auto) 6.9 % (15.5-49.0); Mean Cell Volume 84.1 fL (80.0-100.0); Mean Corpuscular HGB Conc 34.2 g/dL (31.0-36.0); Mean Platelet Volume 10.1 fL (8.8-12.5); Monocytes # (Auto) 1.53 K/mcL (0.10-0.90); Monocytes % (Auto) 13.2 % (1.0-12.0); Neutrophils % (Auto) 79.4 % (38.0-78.0); Platelet Count 221 K/mcL (140-440); RBC 4.41 M/mcL (3.59-5.38); Red Cell Distribution Width 12.3 % (11.5-14.5); WBC 11.6 K/mcL (4.5-11.0)
[2022-09-05 06:32] LABS: ALT/SGPT 11 U/L (<40); AST/SGOT 12 U/L (<32); Albumin 3.3 gm/dL (3.2-5.2); Albumin/Globulin Ratio 1.1 (1.0-2.3); Alkaline Phosphatase 69 U/L (39-117); Bilirubin,Total 1.3 mg/dL (0.1-1.0); Blood Urea Nitrogen 6 mg/dL (6-20); Calcium 8.3 mg/dL (8.6-10.4); Carbon Dioxide 21 mmol/L (22-30); Chloride 101 mmol/L (96-108); Globulin 2.9 gm/dL (2.2-3.7); Glomerular Filtration Rate 138; Glucose 96 mg/dL (70-105)
[2022-09-05] MEDS: cefTRIAXone 1 GM VIAL IV SCH (08:20)
--- NOTE | 2022-09-05 18:14 | Internal Med Progress Note ---
SUBJECTIVE Subjective Patient information: Note initiated : 09/05/22 at 6:10 pm Service Date, if different from initiated Date: [] Patient: Love Sage 21 y/o F admitted on 09/04/22 for UTI. Chief Complaint: [] Additional PMFSH (Level 3 Only): Hospital course: Ms. Sage is a 21 year old F past medical history of pyelonephritis, urinary tract infections presented with 2-3 days history of dysuria, subjective fever, chills, suprapubic and left flank pain. Patient did not eat anything today since she was feeling tired and sleepy. Patient has IUD in place. Patient reported no hematuria. In October 2021 patient was diagnosed with left pyelone phritis with probable 3 cm developing abscess in the superior pole. CT scan abdomen showed recurrent left pyelonephritis 3 x 1.4 cm lesion in the superior left kidney could represent chronic or recurrent abscess, mild urinary bladder wall thickening compatible with cystitis. Patient was in sepsis with tachycardia of 125, fever 101.5, blood pressure 106/64 leukocytosis of 13,000. UA was consistent with UTI. Renal function is normal with normal electrolytes. Patient started with IV boluses and ceftriaxone in ER and admission was requested. 09/05. Tachycardia overnight improved but still there. No fevers. Leukocytosis somewhat improved to 11.6 from 13,000. Urine culture with gram-negative bacillus, blood cultures negative to date. Patient feels improved overall Review of system Constitutional Constitutional: Patient reports no chills or fever EENT Eyes: Absent blurry vision, change in vision, loss of vision or other visual disturbances Ears: Absent decreased hearing or tinnitus Nose, mouth and throat: Absent abnormal hearing, dry mouth, headache(s), nasal congestion or sore throat Cardiovascular Cardiovascular: Absent chest pain, chest pain at rest, edema, irregular heart rhythm or palpatations Respiratory Respiratory: Absent cough, dyspnea or wheezing Gastrointestinal Gastrointestinal: Absent abdominal pain, constipation, diarrhea, nausea or v omiting Genitourinary Genitourinary: Dysuria is resolving, on mild left flank pain and suprapubic pain has almost resolved Musculoskeletal Musculoskeletal: Absent back pain, deformity, limited range of motion, muscle cramps, muscle weakness or numbness Integumentary Integumentary: Absent lesions, rash or wounds Neurological Neurological: Absent focal weakness, headache(s) or numbness Psychiatric Physical examination General appearance: cooperative and no acute distress Head Head exam: Present atraumatic and normocephalic Eye Eye exam: Present EOMI and PERRL ENT ENT exam: Present mucous membranes moist, normal exam and normal external ear exam Neck Neck exam: Present normal inspection; Absent lymphadenopathy, tenderness or thyromegaly Respiratory Respiratory exam: Absent accessory muscle use, respiratory distress or wheezes Cardiovascular Cardiovascular exam: Present S1 and S2, sinus tachycardia, no murmurs heard GI/Abdominal GI/Abdominal exam: Present normal bowel sounds and soft; Absent organomegaly or tenderness Extremities Exam Extremities exam: Present full ROM, normal capillary refill and normal inspection; Absent tenderness Back Exam Back exam: Left CVA tenderness is resolving but still present Neurological Exam Neurological exam: Present alert, CN II-XII intact and oriented X3; Absent motor sensory deficit Psychiatric Psychiatric exam: Present normal affect and normal mood; Absent anxious or depressed Skin Skin exam: Present dry and intact Assessment and plan Sepsis Patient presented with tachycardia, fever, leukocytosis and pyelonephritis. Initially hypotensive responded to 2 L boluses. Acute pyelonephritis Patient with history of left pyelonephritis with probable 3 cm abscess in the left superior pole. CT scan this time showed recurrent left pyelonephritis 3 x 1.4 cm lesion in the superior left kidney could represent chronic or recurrent abscess, mild urinary bladder wall thickening compatible with cystitis. Patient with history of E. coli UTI and bacteremia. We will start her on IV ceftriaxone. Urine culture growing gram-negative bacilli. Blood cultures negative to date. Pain control with Tylenol GI ppx: not currently indicated DVT ppx: SCDs Code status: Full Prognosis: guarded Disposition: inpatient med surg Time taken 42 minutes Constitutional Vitals: Vital Signs Temp Pulse Resp BP Pulse Ox O2 Del Method 98.8 F 101 H 16 107/70 98 Room Air 09/05/22 16:00 09/05/22 16:00 09/05/22 16:00 09/05/22 16:00 09/05/22 16:00 09/05/22 16:00 Period Temp Pulse Resp BP Sys/[place] Pulse Ox O2 Del Method O2 Flow Rate Last 24 Hr 98.1 F-99.0 F 97-113 14-18 87-111/50-72 97-100 Room Air-Room Air Intake and Output 09/05/22 09/05/22 09/05/22 03:59 11:59 19:59 Intake Total 883 1517 480 Balance 883 1517 480 Weight 49.442 kg 49.442 kg Patient Weight 09/06/22 03:59 Weight 49.442 kg Intake & Output: Intake & Output 09/05/22 09/05/22 09/05/22 03:59 11:59 19:59 Intake Total 883 1517 480 Balance 883 1517 480 Weight 49.442 kg 49.442 kg Intake: IV 883 117 Sodium Chloride 0.9% 1,000 ml @ 883 117 Wide Open IV BOLUS ONE Rx#: [id number] Oral 1400 480 Other: Meal Lunch Percent of Meal Consumed 75% Feeding Ability Independent # Voids 5 OBJ DATA Labs 09/05/22 05:04 09/05/22 05:04 Labs: Abnormal Lab Results 09/05/22 09/05/22 09/04/22 05:04 05:04 17:56 WBC 11.6 H Neut % (Auto) 79.4 H Lymph % (Auto) 6.9 L [place] % (Auto) 13.2 H Lymph # (Auto) 0.80 L [place] # (Auto) 1.53 H Absolute Neutrophils 9.17 H POC VBG pCO2 at Temp POC VBG HCO3 POC VBG Total CO2 Sodium 131 L Carbon Dioxide 21 L POC Total CO2 21.0 L Creatinine 0.5 L POC Creatinine 0.5 L Calcium 8.3 L POC WB Ioniz Calcium 1.10 L Total Bilirubin 1.3 H Urine Appearance Urine Protein Urine Ketones Urine Nitrate Ur Leukocyte Esterase Urine RBC Urine WBC Urine Bacteria Urine Mucus 09/04/22 09/04/22 09/04/22 17:38 17:17 17:00 WBC 13.7 H Neut % (Auto) 79.8 H Lymph % (Auto) 9.4 L [place] % (Auto) Lymph # (Auto) 1.28 L [place] # (Auto) 1.38 H Absolute Neutrophils 10.90 H POC VBG pCO2 at Temp 37.1 L POC VBG HCO3 23.0 L POC VBG Total CO2 24.0 L Sodium Carbon Dioxide POC Total CO2 Creatinine POC Creatinine Calcium POC WB Ioniz Calcium Total Bilirubin Urine Appearance Cloudy A Urine Protein 30 A Urine Ketones 20 A Urine Nitrate Pos A Ur Leukocyte Esterase 500 A Urine RBC 4 H Urine WBC > 182 H Urine Bacteria Few A Urine Mucus Few A Meds: Medications Acetaminophen (Acetaminophen 325 Mg Tablet) 650 mg PO Q6HP PRN; Protocol PRN Reason: Per Pain Protocol/Fever > 101 Last Admin: 09/05/22 16:08 Dose: 650 mg Ceftriaxone Sodium (Ceftriaxone 1 Gm Vial) 1 gm IV Q24H [facility] Last Admin: 09/05/22 08:20 Dose: 1 gm Docusate Sodium (Docusate Sodium 100 Mg Capsule) 100 mg PO BID [facility] Last Admin: 09/05/22 08:20 Dose: Not Given Ondansetron HCl (Ondansetron 4 Mg/2 Ml Vial) 4 mg IV Q6HP PRN PRN Reason: Nausea And Vomiting Senna (Sennosides 1 Tablet) 2 tab PO HS [facility] Last Admin: 09/05/22 00:31 Dose: Not Given Sodium Chloride (0.9 % Sodium Chloride 10 Ml Syringe) 10 ml IV Q8 [facility] Last Admin: 09/05/22 12:22 Dose: 10 ml A/P Time Spent With Patient Time: Total time spent is greater than 50% in coordination of care (as documented) at patient's floor/unit and/or counseling patient: QUALITY VTE Deep Vein Thrombosis/Pulmonary Embolism Present on Admission: No
[2022-09-06] MEDS: 0.9 % SODIUM CHLORIDE 10 ML SYRINGE IV SCH (04:52)
[2022-09-06 06:35] LABS: Basophils # (Auto) 0.04 K/mcL (0.00-0.30); Basophils % (Auto) 0.5 % (0.0-2.0); Eosinophils # (Auto) 0.06 K/mcL (0.00-0.70); Eosinophils % (Auto) 0.7 % (0.0-7.0); Hematocrit 35.2 % (34.1-44.9); Hemoglobin 12.6 g/dL (11.2-15.7); Lymphocytes # (Auto) 1.35 K/mcL (1.50-4.80); Lymphocytes % (Auto) 15.7 % (15.5-49.0); Mean Cell Volume 80.7 fL (80.0-100.0); Mean Corpuscular HGB Conc 35.8 g/dL (31.0-36.0); Mean Platelet Volume 10.1 fL (8.8-12.5); Monocytes # (Auto) 1.25 K/mcL (0.10-0.90); Monocytes % (Auto) 14.5 % (1.0-12.0); Neutrophils % (Auto) 68.5 % (38.0-78.0); Platelet Count 241 K/mcL (140-440); RBC 4.36 M/mcL (3.59-5.38); Red Cell Distribution Width 12.1 % (11.5-14.5); WBC 8.6 K/mcL (4.5-11.0)
[2022-09-06 07:25] LABS: ALT/SGPT 11 U/L (<40); AST/SGOT 13 U/L (<32); Albumin 3.2 gm/dL (3.2-5.2); Albumin/Globulin Ratio 1.1 (1.0-2.3); Alkaline Phosphatase 63 U/L (39-117); Bilirubin,Total 0.6 mg/dL (0.1-1.0); Blood Urea Nitrogen 6 mg/dL (6-20); Calcium 8.8 mg/dL (8.6-10.4); Carbon Dioxide 21 mmol/L (22-30); Chloride 104 mmol/L (96-108); Glomerular Filtration Rate 138; Glucose 109 mg/dL (70-105)
[2022-09-06] MEDS: cefTRIAXone 1 GM VIAL IV SCH (08:56)
[2022-09-06] MEDS: DOCUSATE SODIUM 100 MG CAPSULE PO SCH (08:57)
--- NOTE | 2022-09-06 10:16 | Discharge Summary ---
Discharge Provider Provider IMPORTANT FOLLOW-UP INFORMATION FOR PCP: Patient information: Note initiated : 09/06/22 at 10:13 am Service Date, if different from initiated Date: [] Patient: Love Sage 21 y/o F admitted on 09/04/22 for UTI. Chief Complaint: [] Date of admission: 09/04/22 20:54 Discharge date: 09/06/22 Primary care physician: PCP No Admitting clinician: Gael Grimaldo Attending physician on admission: Gael Grimaldo Consults: 09/04/22 Consult to Physician [CONS] Stat Comment: Consulting Provider: Gael Grimaldo Reason For Exam: Physician to Consult Attending physician on discharge: Gael Grimaldo Discharging clinician: Gael Grimaldo COURSE Hospital Course Hospital course: Hospital course: Ms. Sage is a 21 year old F past medical history of pyelonephritis, urinary tract infections presented with 2-3 days history of dysuria, subjective fever, chills, suprapubic and left flank pain. Patient did not eat anything today since she was feeling tired and sleepy. Patient has IUD in place. Patient reported no hematuria. In October 2021 patient was diagnosed with left pyelonephritis with probable 3 cm developing abscess in the superior pole. CT scan abdomen showed recurrent left pyelonephritis 3 x 1.4 cm lesion in the superior left kidney could represent chronic or recurrent abscess, mild urinary bladder wall thickening compatible with cystitis. Patient was in sepsis with tachycardia of 125, fever 101.5, blood pressure 106/64 leukocytosis of 13,000. UA was consistent with UTI. Renal function is normal with normal electrolytes. Patient started with IV boluses and ceftriaxone in ER and admission was requested. 09/05. Tachycardia overnight improved but still there. No fevers. Leukocytosis somewhat improved to 11.6 from 13,000. Urine culture with gram-negative bacillus, blood cultures negative to date. Patient feels improved overall 09/06. No fever overnight. Patient is feeling significantly better. Leukocytosis resolved. Urine culture positive for pansensitive E. coli. Patient is requesting to go home. Will transition to oral cefdinir to complete a total of 10 to 14 days course. Recommend repeating CT scan abdomen to follow- up on pyelonephritis and probable abscess as an outpatient in 2 weeks. Discharge diagnosis Sepsis Patient presented with tachycardia, fever, leukocytosis and pyelonephritis. Acute pyelonephritis Patient with history of left pyelonephritis with probable 3 cm abscess in the left superior pole. CT scan this time showed recurrent left pyelonephritis 3 x 1.4 cm lesion in the superior left kidney could represent chronic or recurrent abscess, mild urinary bladder wall thickening compatible with cystitis. Patient with history of E. coli UTI and bacteremia. Urine culture grew pansensitive E. coli. Patient received IV ceftriaxone. No longer afebrile. Leukocytosis has resolved. Blood cultures negative to date. Patient will be discharged on cefdinir 300 mg twice daily to complete 10 to [address] scan abdomen to follow-up on probable abscess and left superior pole of kidney. Review of system Constitutional Constitutional: Patient reports no chills or fever EENT Eyes: Absent blurry vision, change in vision, loss of vision or other visual disturbances Ears: Absent decreased hearing or tinnitus Nose, mouth and throat: Absent abnormal hearing, dry mouth, headache(s), nasal congestion or sore throat Cardiovascular Cardiovascular: Absent chest pain, chest pain at rest, edema, irregular heart rhythm or palpatations Respiratory Respiratory: Absent cough, dyspnea or wheezing Gastrointestinal Gastrointestinal: Absent abdominal pain, constipation, diarrhea, nausea or vomiting Genitourinary Genitourinary: No longer dysuria or flank pain Musculoskeletal Musculoskeletal: Absent back pain, deformity, limited range of motion, muscle cramps, muscle weakness or numbness Integumentary Integumentary: Absent lesions, rash or wounds Neurological Neurological: Absent focal weakness, headache(s) or numbness Psychiatric Physical examination General appearance: cooperative and no acute distress Head Head exam: Present atraumatic and normocephalic Eye Eye exam: Present EOMI and PERRL ENT ENT exam: Present mucous membranes moist, normal exam and normal external ear exam Neck Neck exam: Present normal inspection; Absent lymphadenopathy, tenderness or thyromegaly Respiratory Respiratory exam: Absent accessory muscle use, respiratory distress or wheezes Cardiovascular Cardiovascular exam: Present S1 and S2, sinus tachycardia, no murmurs heard GI/Abdominal GI/Abdominal exam: Present normal bowel sounds and soft; Absent organomegaly or tenderness Extremities Exam Extremities exam: Present full ROM, normal capillary refill and normal inspection; Absent tenderness Back Exam Back exam: no longer CVA tenderness Neurological Exam Neurological exam: Present alert, CN II-XII intact and oriented X3; Absent motor sensory deficit Psychiatric Psychiatric exam: Present normal affect and normal mood; Absent anxious or depressed Skin Skin exam: Present dry and intact Discharge diagnosis: Sepsis, pyelonephritis Time Spent with Patient Time attestation: Total time spent providing and/or coordinating discharge services: Time spent: Greater than 30 minutes EXAM Constitutional Vitals: Temp Pulse Resp BP Pulse Ox O2 Del Method O2 Flow Rate 97.3 F 101 H 20 141/61 92 Nasal Cannula 2.5 09/06/22 08:05 09/06/22 08:05 09/06/22 08:05 09/06/22 08:05 09/06/22 08:05 09/06/22 08:05 09/06/22 08:05 Discharge Data Data Completed and Pending Labs on day of discharge: Labs from last 24 hours 09/06/22 09/06/22 05:28 05:28 WBC 8.6 RBC 4.36 Hgb 12.6 Hct 35.2 MCV 80.7 MCH 28.9 MCHC 35.8 RDW 12.1 Plt Count 241 MPV 10.1 Immature Gran % (Auto) 0.1 Neut % (Auto) 68.5 Lymph % (Auto) 15.7 [place] % (Auto) 14.5 H Eos % (Auto) 0.7 Baso % (Auto) 0.5 Lymph # (Auto) 1.35 L [place] # (Auto) 1.25 H Eos # (Auto) 0.06 Baso # (Auto) 0.04 Immature Gran # 0.01 Absolute Neutrophils 5.90 Sodium 134 Potassium 3.8 Chloride 104 Carbon Dioxide 21 L Anion Gap 9.0 BUN 6 Creatinine 0.5 L GFR Calculation 138 Glucose 109 H Calcium 8.8 Total Bilirubin 0.6 AST 13 ALT 11 Alkaline Phosphatase 63 Total Protein 6.2 Albumin 3.2 Globulin 3.0 Albumin/Globulin Ratio 1.1 Preliminary micro results at discharge 09/04/22 17:39 Blood Culture - Preliminary Blood 09/04/22 17:34 Blood Culture - Preliminary Blood Discharge Plan Patient/Caregiver Discharge Instructions Activity: increase activity as tolerated Diet: Regular Diet Instructions: Urinary Tract Infection in Women (GEN) Prescriptions: No Action No Known Home Meds Prescription drug monitoring program results: PDMP reviewed and no issues identified Follow Up Plan Follow up with: No,PCP [Primary Care Provider] - (Follow-up with PCP in 1 week) Patient Disposition: Home, Self-Care Rehab Potential: Good I certify that the patient requires SNF services: No Overall status at discharge: patient is back to baseline Discharge Orders: Discharge Order (Routine); Ordered 09/06/22 Ordered By: Gael MIR VTE Deep Vein Thrombosis/Pulmonary Embolism Present on Admission: No
== END 2022-09-06 13:10 | disposition home or self-care (01) | DRG 871 ==
LOC: ED 16:42 → MEDSUR 20:54
PROVIDERS: ADMIT Internal Medicine; ATTEND Internal Medicine